=== PATIENT | female | born 1950 | race Asian ===

== ENCOUNTER 2017-06-23 07:31 | Emergency (ER) | payer SELFPAY ==
[~2017-06-23] VITALS: Ht 162.6 cm; Wt 59.0 kg
[2017-06-23 07:31] VITALS: BP_SYST 159
[2017-06-23] MEDS ORDERED: HYDROmorphone 1 MG INJ. 1 MG/ML AMPUL IVP ONE (08:15)
[2017-06-23 08:25] LABS: BILIRUBIN,URINE NEGATIVE (NEGATIVE); BLOOD, URINE 3+ (NEGATIVE); CLARITY/URINE CLEAR (CLEAR); COLOR,URINE YELLOW (YELLOW); GLUCOSE,URINE NEGATIVE (NEGATIVE); KETONES,URINE NEGATIVE (NEGATIVE); LEUKOCYTE ESTERASE ,URINE NEGATIVE (NEGATIVE); NITRITE, URINE NEGATIVE (NEGATIVE); PROTEIN URINE NEGATIVE (NEGATIVE); UROBILINOGEN,URINE 0.2 (0.2-1.0)
[2017-06-23 08:35] LABS: CALCIUM 9.5 mg/dL (8.4-11.0); CREATININE 0.7 mg/dL (0.55-1.30); POTASSIUM 4.2 mmol/L (3.5-5.1)
[2017-06-23 08:38] LABS: RBC,URINE 20-50 /HPF (0-3)
[2017-06-23 08:39] LABS: ALBUMIN 4.1 g/dL (3.4-4.8); TOTAL BILIRUBIN 0.5 mg/dL (0.0-1.0)
[2017-06-23 08:39] LABS: BACTERIA,URINE FEW /HPF (None Seen); MUCUS,URINE 1+ /LPF (None Seen); WBC,URINE 0-3 /HPF (0-3)
[2017-06-23] MEDS ORDERED: ONDANSETRON HCL 4 MG/2 ML VIAL IVP ONE (08:45)
[2017-06-23 08:53] LABS: BASOPHILS # (AUTO) 0.1 K/uL (0.0-0.2); BASOPHILS % (AUTO) 0.9 % (0.0-2.0); EOSINOPHILS # (AUTO) 0.2 K/uL (0.0-0.4); EOSINOPHILS % (AUTO) 2.3 % (0.0-4.0); HEMATOCRIT 42.3 % (36-48); HEMOGLOBIN 13.6 g/dL (12.0-16.0); MEAN CORPUSCULAR HEMOGLOBIN 28 pg (27-31); MEAN CORPUSCULAR HGB CONC 32 % (32-36); MEAN CORPUSCULAR VOLUME 88 fL (79.0-98.0); MONOCYTES # (AUTO) 0.4 K/uL (0.0-1.0); MONOCYTES % (AUTO) 5.8 % (1.7-9.3); NEUTROPHILS # (AUTO) 5.4 K/uL (1.8-7.7); PLATELET COUNT (AUTO) 311 K/uL (130-430); RED BLOOD CELL COUNT(AUTO) 4.82 MIL/uL (4.2-6.2); RED CELL DISTRIBUTION WIDTH 12.4 % (9.0-15.0); WHITE BLOOD COUNT (AUTO) 7.1 K/uL (4.8-10.8)
[2017-06-23 09:43] VITALS: BP_SYST 121
== END 2017-06-23 09:41 | disposition home or self-care (01) ==
LOC: SED 07:31
DX: N20.0 Calculus of kidney (principal); K21.9 Gastro-esophageal reflux disease without esophagitis; I10 Essential (primary) hypertension; Z90.49 Acquired absence of other specified parts of digestive tract
CPT/HCPCS: 36415; 74176; 80053; 81000; 83615; 83690; 85025; 96374; 96375; 99285; J1170; J2405

== ENCOUNTER 2019-06-09 10:13 | Emergency (ER) | payer OTHER ==
[~2019-06-09] VITALS: Ht 160 cm; Wt 59.0 kg
[2019-06-09 10:18] VITALS: BP_SYST 152
--- NOTE | 2019-06-09 10:18 | NUR ---
Patient to ER bed 4 to gown for evaluation. Side rails up. Assumed care.
--- NOTE | 2019-06-09 10:20 | NUR ---
Patient arrived via POV, AAOx4, and c/c of abdominal pain since this AM. Patient states no nausea, vomiting, diarrhea, changes in appetite. Patient states pain is in the upper left quadrant, sharp, stabbing at 5/10 for severity. Patient states she has already had surgical removal of gallbladder, and appendix. Patient states history of GERD. Patient calm and cooperative. Family at bedside. Will continue to follow up and monitor.
--- NOTE | 2019-06-09 10:22 | NUR ---
ER at bedside examining patient.
[2019-06-09] MEDS ORDERED: ONDANSETRON 4 MG ODT TAB PO ONE (10:30)
--- NOTE | 2019-06-09 10:40 | NUR ---
Lab at bedside for collection of specimens.
--- NOTE | 2019-06-09 10:45 | NUR ---
Patient medicated with zofran as ordered by . Patient to be sent to CT scan, [facility] at bedside. Will continue to follow up upon return.
[2019-06-09 10:54] LABS: BASOPHILS % (AUTO) 0.5 % (0.0-2.0); EOSINOPHILS # (AUTO) 0.1 K/uL (0.0-0.4); EOSINOPHILS % (AUTO) 0.8 % (0.0-4.0); HEMATOCRIT 43.7 % (36-48); HEMOGLOBIN 14.6 g/dL (12.0-16.0); LYMPHOCYTES % (AUTO) 14.1 % (20.5-51.5); MEAN CORPUSCULAR HEMOGLOBIN 30 pg (27-31); MEAN CORPUSCULAR HGB CONC 33 % (32-36); MEAN CORPUSCULAR VOLUME 90 fL (79.0-98.0); MONOCYTES # (AUTO) 0.3 K/uL (0.0-1.0); MONOCYTES % (AUTO) 4.6 % (1.7-9.3); NEUTROPHILS # (AUTO) 5.9 K/uL (1.8-7.7); PLATELET COUNT (AUTO) 276 K/uL (130-430); RED BLOOD CELL COUNT(AUTO) 4.85 MIL/uL (4.2-6.2); RED CELL DISTRIBUTION WIDTH 13.1 % (9.0-15.0); WHITE BLOOD COUNT (AUTO) 7.3 K/uL (4.8-10.8)
--- NOTE | 2019-06-09 10:55 | NUR ---
Patient returned from CT scan in stable condition, patient tolerated testing well. Will continue to follow up and monitor.
[2019-06-09 11:07] LABS: CALCIUM 8.6 mg/dL (8.4-11.0); CREATININE 0.68 mg/dL (0.55-1.30); POTASSIUM 3.4 mmol/L (3.5-5.1)
[2019-06-09 11:10] LABS: PROTHROMBIN TIME 10.2 SECS (9.5-12.5)
[2019-06-09 11:12] LABS: ALBUMIN 4.1 g/dL (3.4-4.8); TOTAL BILIRUBIN 0.6 mg/dL (0.0-1.0)
--- NOTE | 2019-06-09 11:35 | NUR ---
Patient aware we are waiting for results and Dr. Chavez will come in to discuss them with patient and family. Will continue to follow up and monitor.
--- NOTE | 2019-06-09 12:46 | NUR ---
Dr. Chavez at bedside discussing results with patient and family.
[2019-06-09 13:18] VITALS: BP_SYST 138
--- NOTE | 2019-06-09 13:18 | NUR ---
Patient given written and verbal discharge instructions and verbalizes understanding. ER MD discussed with patient the results and treatment provided. Patient in stable condition. ID arm band removed. Rx of Motrin and [place] given. Patient educated on pain management and to follow up with PMD. Pain Scale 2/10 tolerable for pt. Opportunity for questions provided and answered. Medication side effect fact sheet provided.
== END 2019-06-09 13:18 | disposition home or self-care (01) ==
LOC: SED 10:13
DX: R10.11 Right upper quadrant pain (principal); I10 Essential (primary) hypertension; K21.9 Gastro-esophageal reflux disease without esophagitis
CPT/HCPCS: 36415; 74176; 80053; 81002; 82150; 83605; 83690; 85025; 85610; 85730; 99284; Q0162